=== PATIENT | female | born 1940 | race Caucasian/White ===

== ENCOUNTER → 2018-04-11 | Outpatient (CLI) | payer MEDICARE, OTHER ==
[~2018-04-11] MED LIST: DETROL2 M1
== END ==
LOC: M.RAD 15:13
DX: M81.0 Age-related osteoporosis without current pathological fracture (principal); E28.39 Other primary ovarian failure; Z78.0 Asymptomatic menopausal state

== ENCOUNTER 2019-04-03 20:09 | Inpatient (IN) | payer MEDICARE, OTHER ==
[~2019-04-03] VITALS: Ht 162.6 cm; Wt 59.0 kg
[2019-04-03 20:20] VITALS: BP 178/103
[2019-04-03 21:23] LABS: ABSOLUTE LYMPHOCYTES 0.9 thou/uL (0.8-5.3); ABSOLUTE MONOCYTES 0.2 thou/uL (0.0-1.2); ABSOLUTE NEUTROPHILS 6.9 thou/uL (1.6-8.1); BASOPHILS 0.2 %; HEMATOCRIT 41.9 % (37.0-47.0); HEMOGLOBIN 14.7 gm/dL (12.0-15.0); LYMPHOCYTES 11.5 %; MCH 35.1 pg (26.0-34.0); MCHC 35.1 g/dL (28.0-37.0); MCV 99.9 fL (80.0-100.0); MONOCYTES 2.3 %; MPV 7.9 fl. (7.2-11.1); NUCLEATED RBCS 0 /100WBC; PLATELET COUNT* 271 thou/uL (150-400); RBC 4.19 mil/uL (4.20-5.00)
[2019-04-03 21:36] LABS: APTT 23.8 Seconds (25.0-31.3); PROTIME 10.6 Seconds (9.20-11.50)
[2019-04-03 21:38] LABS: ANION GAP 10 mmol/L (7-16); BUN 16 mg/dL (7-18); CALCIUM 8.8 mg/dL (8.5-10.1); CHLORIDE 106 mmol/L (98-107); CO2 27 mmol/L (21-32); CREATININE 1.1 mg/dL (0.6-1.3); GLUCOSE 144 mg/dL (70-99); POTASSIUM 3.9 mmol/L (3.5-5.1); SODIUM 143 mmol/L (136-145)
[2019-04-03 21:49] LABS: ALBUMIN 4.2 g/dL (3.4-5.0); ALKALINE PHOSPHATASE 143 U/L (46-116); NT-PRO BRAIN NAT PEPTIDE 265 pg/mL (<300); SGOT 24 U/L (15-37); SGPT 27 U/L (30-65); TOTAL BILIRUBIN 0.6 mg/dL (<0.1-1.0); TOTAL PROTEIN 7.3 g/dL (6.4-8.2); TROPONIN-I LEVEL <0.06 ng/mL (<0.06)
[2019-04-03 21:57] LABS: PLATELET ESTIMATE ADEQUATE
[2019-04-03 23:03] LABS: URINE BILIRUBIN NEGATIVE (Negative); URINE BLOOD 1+ (Negative); URINE CLARITY CLEAR; URINE COLOR YELLOW; URINE GLUCOSE-RANDOM NEGATIVE (Negative); URINE KETONES TRACE (Negative); URINE LEUKOCYTES-REFLEX NEGATIVE (Negative); URINE NITRITE-REFLEX NEGATIVE (Negative); URINE PROTEIN NEGATIVE (Negative); URINE UROBILINOGEN 0.2 E.U./dl (0.2-1.0)
[2019-04-03 23:21] LABS: CASTS None Seen /LPF (None Seen); SQUAMOUS 0-3 Few /LPF (0-3)
[2019-04-03 23:22] LABS: BACTERIA-REFLEX None Seen /HPF (None Seen); CRYSTALS None Seen /LPF (None Seen); URINE RBC 3-10 Few /HPF (0-2); URINE WBC-REFLEX 0-5 Rare /HPF (0-5)
[2019-04-04 02:30] VITALS: BP 110/56
[2019-04-04 06:22] VITALS: BP 102/58
--- NOTE | 2019-04-04 07:10 | NUR ---
DR. AGUILAR CONSULTING WITH PATIENT AT THIS TIME.
--- NOTE | 2019-04-04 09:09 | NUR ---
PT GIVEN BREAKFAST TRAY AT THIS TIME.
[2019-04-04 09:15] LABS: ALBUMIN 3.3 g/dL (3.4-5.0); CALCIUM 8.3 mg/dL (8.5-10.1); POTASSIUM 3.8 mmol/L (3.5-5.1); TOTAL BILIRUBIN 0.7 mg/dL (<0.1-1.0)
[2019-04-04 10:30] VITALS: BP 121/61
[2019-04-04 11:53] VITALS: BP 123/60
[2019-04-04] MEDS ORDERED: ZYRTEC10 M4 PO (13:02)
--- NOTE | 2019-04-04 16:39 | 2DMMODE ---
[place] [address] 2 D/M-MODE ECHOCARDIOGRAM Name: GUERRERO SANDERSON Room: [address] IN [facility]#: [id number] Admission: 04/03/19 Attend Phys: Ulises Cabrera, Discharge: Date of : 36 Date of Service: 04/04/19 1639 Report #: [id number] THIS REPORT FOR: //name// APPROVED REPORT Study performed: 04/04/2019 10:27:14 EXAM: Comprehensive 2D, Doppler, and color-flow Echocardiogram Patient Location: In-Patient Room #: er Status: routine BSA: 1.63 HR: 64 bpm BP: 102/58 mmHg Other Information Study Quality: Good Indications CVA/TIA Echo Enhancing Agent Indication: Rule out Shunt Agent(s) / Amount(s) Used: Agitated Saline 10 cc 2D Dimensions IVSd: 8.51 (7-11mm) LVOT Diam: 18.98 (18-24mm) LVDd: 39.74 mm PWd: 8.51 (7-11mm) Ascending Ao: 30.40 (22-36mm) LVDs: 27.22 (25-40mm) Aortic Root: 29.87 mm Volumes Left Atrial Volume (Systole) LA ESV Index: 27.50 mL/m2 Aortic Valve AoV Peak Raman.: 1.32 m/s AO Peak Gr.: 6.97 mmHg LVOT Max P.42 mmHg AO Mean Gr.: 3.75 mmHg LVOT Mean P.99 mmHg LVOT Max V: 1.05 m/s AO V2 VTI: 27.72 cm LVOT Mean V: 0.64 m/s STEVEN (VTI): 2.26 cm2 LVOT V1 VTI: 22.11 [place] [address] 2 D/M-MODE ECHOCARDIOGRAM Name: GUERRERO SANDERSON Room: [address] IN [facility]#: [id number] Admission: 04/03/19 Attend Phys: Ulises Cabrera, Discharge: Date of : 36 Date of Service: 04/04/19 1639 Report #: [id number] E/A Ratio: 0.98 MV Decel. Time: 200.98 ms MV E Max Raman.: 0.82 m/s MV PHT: 58.28 ms MVA (PHT): 3.77 cm2 TDI E/Lateral E': 6.31 E/Medial E': 6.83 Medial E' Raman.: 0.12 m/s Lateral E' Raman.: 0.13 m/s Pulmonary Valve PV Peak Raman.: 0.83 m/s PV Peak Gr.: 2.74 mmHg Tricuspid Valve RAP Estimate: 5.00 mmHg TR Peak Gr.: 23.27 mmHg RVSP: 28.00 mmHg PA Pressure: 28.00 mmHg Left Ventricle The left ventricle is normal size. There is normal LV segmental wall motion. There is normal left ventricular wall thickness. Left ventricular systolic function is normal. The left ventricular ejection fraction is within the normal range. LVEF is 60%. The left ventricular diastolic function is normal. Right Ventricle The right ventricle is normal size. The right ventricular systolic function is normal. Atria The left atrium size is normal. Interatrial septum is intact without evidence of ASD or PFO. The right atrium size is normal. Aortic Valve The aortic valve is normal in structure. No aortic regurgitation is present. There is no aortic valvular stenosis. Mitral Valve The mitral valve is normal in structure. Mild mitral regurgitation. No evidence of mitral valve stenosis. Tricuspid Valve The tricuspid valve is normal in structure. Mild to moderate [place] [address] 2 D/M-MODE ECHOCARDIOGRAM Name: GUERRERO SANDERSON Room: [address] IN M.R.#: [id number] Admission: 04/03/19 Attend Phys: Ulises Cabrera, Discharge: Date of : 36 Date of Service: 04/04/19 1639 Report #: [id number] Pulmonic Valve The pulmonary valve is normal in structure. There is no pulmonic valvular regurgitation. Great Vessels The aortic root is normal in size. IVC is normal in size and collapses >50% with inspiration. Pericardium There is no pericardial effusion. <Conclusion> The left ventricle is normal size. There is normal left ventricular wall thickness. Left ventricular systolic function is normal. The left ventricular ejection fraction is within the normal range. LVEF is 60%. The left ventricular diastolic function is normal. The right ventricle is normal size. The left atrium size is normal. The right atrium size is normal. The aortic valve is normal in structure. The mitral valve is normal in structure. Mild mitral regurgitation. The tricuspid valve is normal in structure. Mild to moderate tricuspid regurgitation. IVC is normal in size and collapses >50% with inspiration. There is no pericardial effusion. There is normal LV segmental wall motion. Interatrial septum is intact without evidence of ASD or PFO. <ELECTRONICALLY SIGNED> By: Dinesh Montenegro MD, [facility] 04/04/19 1639 1639 1639 Dinesh Montenegro MD, FACC /INF
[2019-04-04 16:50] VITALS: BP 145/75
--- NOTE | 2019-04-04 16:52 | EKG ---
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: [place] : 1940 Requested By: Shashi Cheatham Order Number: [id number] MD: Narinder Hinson Measurements Intervals [place] Rate: 79 P: 82 NH: 157 QRS: 56 QRSD: 92 T: 39 QT: 409 QTc: 469 Interpretive Statements Sinus rhythm Baseline wander in lead(s) V6 No previous ECG available for comparison Electronically Signed On 04-04-2019 16:52:36 CDT by Narinder Hinson [email or web address] <ELECTRONICALLY SIGNED> By: Narinder Hinson MD, [facility] 04/04/192 22 22 Narnider Hinson MD, [facility] /EPI
--- NOTE | 2019-04-04 19:02 | NUR ---
PT ARRIVED FROM ER AROUND 1230. ASSESSMENT COMPLETED CHARTED. ABLE TO MAKE NEEDS KNOWN. UP WITH SBA TO BATHROOM R/T WEAKNESS AND DIZZINESS. NO C/O PAIN OR DISCOMFORT. IV FLUIDS INFUSING PER EMAR. CALLS OUT APPROPRIATELY, CALL LIGHT WITHIN REACH. MRI COMPLETED THIS SHIFT, POSSIBLE D/C TOMORROW. WILL CONTINUE TO MONITOR.
[2019-04-04 20:00] VITALS: BP 107/54
[2019-04-05] VITALS: BP 109/63
[2019-04-05 04:00] VITALS: BP 141/67
[2019-04-05 05:03] LABS: CHOLESTEROL 134 mg/dL (<200); HDL CHOLESTEROL 45 mg/dL (>40); LDL CHOLESTEROL 76 mg/dL (<100); SERUM ASSESSMENT Clear; TRIGLYCERIDE 67 mg/dL (<150); VLDL 13 mg/dL (<40)
--- NOTE | 2019-04-05 06:38 | NUR ---
ASSUMED CARE OF PT AFTER REPORT AT 1930. PT A&OX4. VSS. PHYSICAL ASSESSMENT COMPLETED AND CHARTED. PT ON RA. PT TRACING SR/SB ON TELE. PT UPSTANDBY TO RESTROOM. PT DENIES ANY PAIN OR DISCOMFORT. PT ABLE TO SLEEP WELL ON BED. CALL LIGHT WITHIN REACH.
[2019-04-05 08:00] VITALS: BP 145/63
[2019-04-05 11:46] VITALS: BP 136/78
--- NOTE | 2019-04-05 15:18 | NUR ---
MET WITH PT AND THEN AGAIN WITH PT, BROTHER AND HIS TO DISCUSS HOME SITUATION/DC PLANNING. PT LIVES ALONE, HAS DOG. SHE IS WANTING TO GO HOME BUT FAMILY CONCERNED ABOUT HER BEING SAFE D/T HER BALANCE ISSUES AND THE FACT THAT SHE LIVES IN A TRI LEVEL HOME. PT IS NORMALLY INDEPENDENT AND ACTIVE. USES NO EQUIPMENT. DISCUSSED SNF, PT IS NOW AGREEABLE AND WOULD LIKE [facility], IF NOT THERE, THEN [facility]. CALLED AND FAXED REFERRAL TO BOTH. [facility] IS ABLE TO ACCEPT PT TOMORROW. ALSO RECEIVED CALL BACK FROM [facility], THEY CAN ACCEPT ALSO. PT PREFERS [facility]. ANTICIPATE DC IN NEXT DAY OR SO
[2019-04-05 15:58] VITALS: BP 141/85
[2019-04-05] MEDS ORDERED: ONE-A-DAY WOMENS PO (16:22)
[2019-04-05] MEDS ORDERED: COLESTIPOL HCL1 G1 PO (16:23)
[2019-04-05] MEDS ORDERED: TOLTERODINE TART4 MG PO (16:24)
[2019-04-05] MEDS ORDERED: BIOTIN2500 MCG PO (16:28)
[2019-04-05] MEDS ORDERED: SUPER B COMPLE1 EAC2 PO (16:29)
[2019-04-05] MEDS ORDERED: ECHINACEA HERB380 MG PO (16:32)
[2019-04-05] MEDS ORDERED: MAGOX 400400 MG PO (16:35)
[2019-04-05] MEDS ORDERED: VITAMIN D2000 UNIT PO (16:35)
[2019-04-05] MEDS ORDERED: CALCIUM 600 +1 EAC1 PO (16:37)
[2019-04-05] MEDS ORDERED: CINNAMON500 MG PO (16:38)
--- NOTE | 2019-04-05 18:18 | NUR ---
ASSUMED PT CARE AT 0730. ASSESSMENT COMPLETED CHARTED. ABLE TO MAKE NEEDS KNOWN. UP WITH 1 ASSIST WITH CANE. NO C/O PAIN OR DISCOMFORT. CALL LIGHT WITHIN REACH. WILL CONTINUE TO MONITOR.
[2019-04-05 20:00] VITALS: BP 148/73
[2019-04-06] VITALS: BP 141/67
--- NOTE | 2019-04-06 03:49 | NUR ---
PT A+O X4. TRACING SR ON MONITOR. UP TO BATHROOM WITH STB ASSIST. PT STATES "IM FEELING MUCH BETTER. I FEEL STRONGER AND IM ONLY A LITTLE DIZZY SOMETIMES." DENIES NAUSEA. IV INFILTRATED. D/C'D AND NOT RESTARTED PER PT REQUEST. PT NOT ON IV MEDS AND PLAN TO D/G TODAY. CALL LIGHT IN REACH. HOURLY ROUNDING FOR SAFETY.
[2019-04-06 04:00] VITALS: BP 124/62
[2019-04-06 08:00] VITALS: BP 133/66
[2019-04-06] MEDS ORDERED: TRANSDERM-SCOP1 EACH TRANSDERM (13:12)
--- NOTE | 2019-04-06 13:55 | NUR ---
Following for d/c planning needs. Received order from physician to arrange d/c to SNF today. Per previous CM note, pt has chosen [facility]. Spoke with patient services coordinator at facility and arranged w/c van transportation at 1500. Chart to be copied and sent with pt. Pt is alert and oriented and has contacted her family re: discharge. No other needs identified.
[2019-04-06 14:37] VITALS: BP 133/66
--- NOTE | 2019-04-06 15:33 | NUR ---
PT DISCHARGED VIA WHEELCHAIR VAN TO SNU. TELEMETRY WAS DISCONTINUED, PT HAD NO IV ACCESS. REPORT WAS CALLED TO LARA AT FACILITY. ALL BELONGINGS SENT WITH PT. PT HAD NOTIFIED FAMILY OF DISCHARGE EARLIER TODAY.
--- NOTE | 2019-04-14 09:32 | CON ---
[address] [address] CONSULTATION Name: GUERRERO SANDERSON Room: [address] IN M.R.#: [id number] Admission: 04/03/19 Attend Phys: Ulises Cabrera MD Discharge: 04/06/19 Date of : 36 Report #: [id number] THIS REPORT FOR: //name// CC: Ulises [facility] DATE OF SERVICE: 04/04/2019 HISTORY OF PRESENT ILLNESS: This is an 78-year-old female patient who was seen in the Emergency Room because the patient had woken up with dizziness. She was not able to walk. This was acute in onset and she never had this kind of episode before. She has no prior history of stroke. She was somewhat better, but she was not sure if she was back to her baseline or not. REVIEW OF SYSTEMS: She had some nausea, vomiting, but that was better. She had a cholecystectomy in the past. She has some osteoporosis, but she indicates she is usually pretty active and pretty healthy. A 14-point review of system was carried out and she did not complain of any new eye, ENT, cardiac, respiratory, , musculoskeletal, constitutional, dermatological, hematological, psychiatric, throat, allergic symptom associated with present symptomatology. PAST MEDICAL HISTORY: Negative for any strokes. FAMILY HISTORY: Negative for any early-age stroke. SOCIAL HISTORY: She indicates she manages the things by herself. Her family was there and she does not smoke or drink any alcohol. PHYSICAL EXAMINATION: Indicates she is alert. She is responsive. She can follow simple command. Her speech, concentration, fund of knowledge and memory is at her baseline. Cranial nerve examination 2-12 looks unremarkable. She has symmetrical strength, sensation, reflexes and tone in all 4 extremities. There is no meningeal sign. There is no abnormality of the pulses. Cardiac and respiratory examinations appear unremarkable. No respiratory difficulty or rhonchi was noticed. Blood pressure is 145/75, respirations 18, pulse is 51. LABORATORY DATA: Indicates normal white count. Sodium is 146. MRI was reviewed and MRI does not show any definite abnormality. IMPRESSION AND PLAN: The patient's symptoms are most likely related to some ENT pathology. We will see how she does with physical therapy. If that is okay and echocardiogram is okay, the [place] [address] CONSULTATION Name: BRUNO SANDERSONJORIE KAYY Room: [address] IN [facility]#: [id number] Admission: 04/03/19 Attend Phys: Ulises Cabrera MD Discharge: 04/06/19 Date of : 36 Report #: [id number] Thank you very much for this referral and if you have any question, please feel free to contact me. <ELECTRONICALLY SIGNED> By: Michel Stein MD 04/14/19 0932 1826 [id number] Stein MD /nt
== END 2019-04-06 15:35 | DRG 149 ==
LOC: M.ERS 20:09 → M.2W 22:20 → M.TBA-ER 22:20 → M.2W 04-04 11:13
PROVIDERS: Family Medicine; Nurse Practitioner Family; ADMIT Internal Medicine
DX: R42 Dizziness and giddiness (principal); M81.0 Age-related osteoporosis without current pathological fracture; Z90.49 Acquired absence of other specified parts of digestive tract; Z88.7 Allergy status to serum and vaccine; Z79.899 Other long term (current) drug therapy